=== PATIENT | male | born 1945 | race Caucasian/White ===

== ENCOUNTER 2018-09-02 09:07 | Day surgery (SDC) | payer MEDICARE, BC ==
[2018-09-02] VITALS (8 sets, daily range): BP systolic 107–143; BP diastolic 45–62
[~2018-09-02] VITALS: Ht 180.3 cm; Wt 86.4 kg
[2018-09-02] MEDS ORDERED: diphenhydrAMINE 25mg capsule PO PRN (09:35)
[2018-09-02] MEDS ORDERED: sod bicarbonate 150mEq in D5W 1,150 ML IV ONE (09:35)
[2018-09-02] MEDS ORDERED: BISO1TAB38 PO (09:51)
[2018-09-02] MEDS ORDERED: LOSA50TA64 PO (09:51)
[2018-09-02] MEDS ORDERED: AMLO5TAB PO (09:51)
[2018-09-02] MEDS ORDERED: FLEC100T2 PO (09:51)
[2018-09-02] MEDS ORDERED: RIVA20TA PO (09:51)
[2018-09-02 10:19] LABS: BASOPHILS % (AUTO) 0.7 % (0-1); EOSINOPHILS # (AUTO) 0.1 X10'3 (0-0.9); EOSINOPHILS % (AUTO) 1.5 % (0-6); HEMATOCRIT 42.8 % (42.0-52.0); HEMOGLOBIN 14.3 g/dl (14.0-17.9); LYMPHOCYTES # (AUTO) 1.4 X10'3 (1.1-4.8); LYMPHOCYTES % (AUTO) 19.3 % (21-51); MEAN CORPUSCULAR HEMOGLOBIN 30.7 PG (27.0-31.0); MEAN CORPUSCULAR HGB CONC 33.3 g/dL (33.0-36.5); MEAN CORPUSCULAR VOLUME 92.3 FL (78-98); MEAN PLATELET VOLUME 9.5 FL (7.4-10.4); MONOCYTES # (AUTO) 0.8 X10'3 (0-0.9); MONOCYTES % (AUTO) 10.8 % (2-12); NEUTROPHILS # (AUTO) 4.9 X10'3 (1.8-7.7); NEUTROPHILS % (AUTO) 67.7 % (42-75); PLATELET COUNT 122 X10'3 (140-440); RED BLOOD COUNT 4.64 X10'6 (4.70-6.10); RED CELL DISTRIBUTION WIDTH 13.7 % (11.5-14.5); WHITE BLOOD COUNT 7.2 X10'3 (4.5-11.0)
[2018-09-02] MEDS ORDERED: normal saline 1000ml 1,000 ML IV SCH (10:20)
[2018-09-02 10:25] LABS: ALBUMIN 3.5 G/DL (3.4-5.0); ANION GAP 9 (8-16); BLOOD UREA NITROGEN 26 MG/DL (7-18); BUN/CREATININE RATIO 15.4 (5.4-32.0); CALCIUM 9.3 MG/DL (8.5-10.1); CHLORIDE 107 MMOL/L (99-107); CREATININE 1.69 MG/DL (0.60-1.10); GLUCOSE 92 MG/DL (70-104); POTASSIUM 4.1 MMOL/L (3.5-5.1); SODIUM 141 MMOL/L (135-145); TOTAL CARBON DIOXIDE 24.8 MMOL/L (24-32); eGFR 40 ML/MIN
[2018-09-02 10:36] LABS: INR 1.1 INR; PROTHROMBIN TIME 10.7 SECONDS (9.0-12.0)
[2018-09-02] MEDS ORDERED: LIDOcaine 1% (10mg/ml)w/preservative injection 20ml MDV ONE (10:53)
[2018-09-02] MEDS ORDERED: fentaNYL/PF 50MCG/1 ML 2ML syringe ONE (10:53)
[2018-09-02] MEDS ORDERED: midazolam 2 mg/2 ml injection ONE (10:53)
[2018-09-02] MEDS ORDERED: iohexol 350 MG/ML 50ML vial IV ONE (10:54)
[2018-09-02] MEDS ORDERED: iohexol 350MG/ML 100ml bottle IV ONE (10:54)
[2018-09-02] MEDS ORDERED: proCHLORperazine 10 MG/2 ml inj ONE (11:26)
== END 2018-09-02 15:30 | disposition home or self-care (01) ==
LOC: SSTAY O 09:07
PROVIDERS: ATTEND Internal Medicine Cardiovascular Disease
DX: R94.39 Abnormal result of other cardiovascular function study (principal); I35.1 Nonrheumatic aortic (valve) insufficiency; I27.20 Pulmonary hypertension, unspecified; I10 Essential (primary) hypertension; Z95.3 Presence of xenogenic heart valve; I48.0 Paroxysmal atrial fibrillation; Z79.01 Long term (current) use of anticoagulants; Z80.3 Family history of malignant neoplasm of breast; Z80.8 Family history of malignant neoplasm of other organs or systems
CPT/HCPCS: 36415; 80048; 83735; 85025; 85610; 93005; 93460; 99152; 99153; A6257; J0780; J1644; J2001; J2250; J3010; J7030; Q0163; Q9967; 93456; 93567; A4620; C1760; C1769; C1894